=== PATIENT | male | born 2000 | race Caucasian/White ===

== ENCOUNTER 2018-05-18 01:40 | Emergency (ER) | payer SELFPAY ==
[~2018-05-18] VITALS: Ht 167.6 cm; Wt 120.5 kg
[2018-05-18 01:45] VITALS: BP 100/70
--- NOTE | 2018-05-18 01:45 | NUR ---
TO BED # 9 AMB, REPORT GIVEN TO ALLAN ORDAZ
--- NOTE | 2018-05-18 01:55 | NUR ---
17 Y/O M W/C/O ABD PAIN, AND N/V SINCE YESTERDAY; SKIN IS INTACT, PINK/WARM/DRY; AAOX4, PERRL, WITH EVEN AND STEADY GAIT; LUNGS CLEAR BL, BREATHING UNLABORED; HR EVEN AND REGULAR, BL PERIPHERAL PULSES PRESENT; BS ACTIVE X4, NO TENDERNESS TO PALPATION, NO HEPATOSPLENOMEGALLY PALPATED, RESONANT TO PERCUSSION; PT DENIES ANY FEVER, CP, SOB, OR COUGH AT THIS TIME; PT STATES 9/10 PAIN AT THIS TIME; VSS; PATIENT POSITIONED FOR COMFORT; HOB ELEVATED; BEDRAILS UP X2; BED DOWN.
[2018-05-18] MEDS ORDERED: DICYCLOMINE HCL LIQUID 20 MG, ALUMINUM HYD/MAG/SIMETHICONE 30 ML, LIDOCAINE VISCOUS 2% ... PO ONE ×3 (02:05)
--- NOTE | 2018-05-18 02:05 | NUR ---
DR. POWELL AT BEDSIDE EVALUATING
[2018-05-18] MEDS ORDERED: KETOROLAC 30 MG/ML VIAL IM ONE (02:40)
[2018-05-18 03:19] LABS: HEMATOCRIT 44.1 % (36-52); HEMOGLOBIN 14.1 g/dL (12.0-18.0); MEAN CORPUSCULAR HEMOGLOBIN 26 pg (27-31); MEAN CORPUSCULAR HGB CONC 32 g/dL (33-37); MEAN CORPUSCULAR VOLUME 80.6 fL (80-94); PLATELET COUNT (AUTO) 313 K/uL (140-450); RED BLOOD CELL COUNT(AUTO) 5.47 MIL/uL (4.20-6.10); RED CELL DISTRIBUTION WIDTH 13.6 % (11.6-13.7)
--- NOTE | 2018-05-18 03:30 | NUR ---
PT AMBULATED TO BATHROOM, NAD NOTED.
[2018-05-18 03:33] LABS: ALBUMIN 4.1 g/dL (3.4-5.0); ANION GAP 10.2 (8-16); CARBON DIOXIDE 29.8 mmol/L (21-32); TOTAL BILIRUBIN 0.2 mg/dL (0.0-1.0)
[2018-05-18 03:38] LABS: LYMPHOCYTES % (MANUAL) 14 % (20-46); MONOCYTES % (MANUAL) 2 % (5-12)
--- NOTE | 2018-05-18 03:55 | NUR ---
PT TAKEN TO CT VIA WHEELCHAIR
--- NOTE | 2018-05-18 04:05 | NUR ---
PT BACK FROM CT
[2018-05-18 05:05] VITALS: BP 102/69
--- NOTE | 2018-05-18 05:05 | NUR ---
Patient discharged with v/s stable. Written and verbal after care instructions given and explained. Patient alert, oriented and verbalized understanding of instructions. Ambulatory with steady gait. All questions addressed prior to discharge. ID band removed. Patient advised to follow up with PMD. Rx of FLAGYL, BENTYL given. Patient educated on indication of medication including possible reaction and side effects. Opportunity to ask questions provided and answered.
== END 2018-05-18 05:05 | disposition home or self-care (01) ==
LOC: MED 01:40
DX: R10.13 Epigastric pain (principal); R11.2 Nausea with vomiting, unspecified
CPT/HCPCS: 36415; 74176; 80053; 83690; 85025; 96372; 99285; J1885